=== PATIENT | male | born 1930 | race Caucasian/White ===

== ENCOUNTER 2016-09-21 09:32 | Emergency (ER) | payer OTHER, BC ==
[~2016-09-21] VITALS: Ht 188 cm; Wt 91.6 kg
[~2016-09-21 09:32] MED LIST: AMBIEN10 MG PO; AMOXICILLIN500 MG PO; AZITHROMYCIN250 MG1 PO; CAL-GEST500 MG PO; CHILD ASPIRIN81 M1 PO; COUMADIN4 MG PO; GEODON40 MG PO; LEVAQUIN250 MG PO; LEVAQUIN750 MG PO; LISINOPRIL10 MG PO; LISINOPRIL5 MG PO; LORAZEPAM0.5 MG PO; MELATIN3 MG PO; PREDNISONE10 MG PO; Q-TUSSIN DM SY240 ML PO; QUETIAPINE FUMA25 MG PO; RISPERDAL0.5 MG PO; ROBITUSSIN DM118 ML PO; TYLENOL EXTRA500 MG PO; TYLENOL REGULA325 MG PO; VICODIN 5-3001 EACH PO; VIT B; ZOFRAN4 MG PO; ZOLPIDEM TART12.5 MG; [UNRECOGNIZED DRUG - OTHER] PO
[2016-09-21] MEDS ORDERED: LOPRESSOR25 MG PO ×2 (09:48)
[2016-09-21] MEDS ORDERED: ARICEPT5 MG PO (09:49)
[2016-09-21] MEDS ORDERED: DEPAKOTE SPRIN125 MG PO (09:49)
[2016-09-21 10:24] LABS: BASOPHIL COUNT 0.1 K/uL (0-0.1); EOSINOPHIL (%) 1.1 % (0-5); EOSINOPHIL COUNT 0.1 K/uL (0-0.3); HEMATOCRIT 36.3 % (38.0-50.0); IMMATURE GRANULOCYTE (%) 0.5 % (0.0-0.7); INSTRUMENT ABS NEUTROPHIL CT 6.2 K/uL; LYMPHOCYTE COUNT 0.7 K/uL (1.0-2.8); MCH 32.2 PG (29.0-34.0); MCHC 33.9 G/DL (30.0-36.0); MEAN PLAT.VOLUME 9.1 uM^3 (9.0-12.4); MONOCYTE (%) 8.8 % (3-12); MONOCYTE COUNT 0.7 K/uL (0-0.8); NEUTROPHIL (%) 79.4 % (45-76); NEUTROPHIL COUNT 6.2 K/uL (1.8-6.4); PLATELET COUNT 256 K/uL (156-360); RBC DIS.WIDTH-CV 13.3 % (11.8-14.6); RBC DIS.WIDTH-SD 46.4 % (39-53); RED BLOOD COUNT 3.82 M/uL (4.00-5.50); WHITE BLOOD COUNT 7.8 K/uL (4.1-10.2)
[2016-09-21 10:38] LABS: CHLORIDE 101 mEq/L (99-109); POTASSIUM 4.4 mEq/L (3.7-5.4); SODIUM 134 mEq/L (136-147)
[2016-09-21 10:39] LABS: GLUCOSE 73 mg/dL (70-99)
[2016-09-21 10:41] LABS: ANION GAP 13 MEQ/L (2-14)
[2016-09-21 10:43] LABS: GFR ESTIMATE (CALCULATED) > 59 mL/min/
[2016-09-21 10:44] LABS: UREA NITROGEN (BUN) 19 mg/dL (9-23)
[2016-09-21 10:44] LABS: INFLUENZA A VIRAL ANTIGEN NEGATIVE; INFLUENZA B VIRAL ANTIGEN NEGATIVE
[2016-09-21 10:49] LABS: TROP-I INTERPRETATION NEGATIVE; TROPONIN-I 0.03 ng/mL (0.0-0.30)
[2016-09-21 13:15] VITALS: BP 131/99
== END 2016-09-21 13:16 | disposition hospice, home (50) ==
LOC: EME 09:32
PROVIDERS: Emergency Medicine
DX: R06.00 Dyspnea, unspecified (principal); G30.9 Alzheimer's disease, unspecified; F02.80 Dementia in other diseases classified elsewhere, unspecified severity, without behavioral disturbance, psychotic disturbance, mood disturbance, and anxiety; I48.91 Unspecified atrial fibrillation; E78.5 Hyperlipidemia, unspecified; Z85.828 Personal history of other malignant neoplasm of skin; Z95.0 Presence of cardiac pacemaker; Z95.2 Presence of prosthetic heart valve; Z79.82 Long term (current) use of aspirin; Z66 Do not resuscitate; Z51.5 Encounter for palliative care
CPT/HCPCS: 71020; 80048; 81003; 83605; 83880; 84484; 85025; 87040; 87077; 87186; 87502; 87801; 93005; 99281; 99285